=== PATIENT | female | born 1990 | race Caucasian/White ===

== ENCOUNTER 2016-09-12 23:53 | Emergency (ER) | payer OTHER ==
[~2016-09-12] VITALS: Ht 157.4 cm; Wt 42.2 kg
[2016-09-13] MEDS ORDERED: Motrin,Rufen800 MG PO (00:05)
[2016-09-13] MEDS ORDERED: AMOXICILLIN500 M2 PO (00:05)
== END 2016-09-13 00:36 | disposition home or self-care (01) ==
LOC: ED 23:53
DX: K08.89 Other specified disorders of teeth and supporting structures (principal); F17.200 Nicotine dependence, unspecified, uncomplicated

== ENCOUNTER → 2019-11-02 | Outpatient (CLI) | payer OTHER ==
[~2019-11-02] MED LIST: AMOXICILLIN500 M2 PO; Motrin,Rufen800 MG PO
== END | disposition home or self-care (01) ==
LOC: MAMMO 13:00
DX: D24.1 Benign neoplasm of right breast (principal)